=== PATIENT | female | born 2000 | race Caucasian/White ===

== ENCOUNTER 2022-02-19 11:56 | Emergency (ER) | payer OTHER, SELFPAY ==
--- NOTE | 2022-02-19 12:09 | XR_ITS ---
FINAL REPORT CLINICAL HISTORY: fall, bilateral knee pain with abrasions FINDINGS: Three views of the right knee reveal no evidence of fracture or dislocation. The bony alignment is normal. The joint spaces are preserved. There is no evidence of joint effusion. No localized soft tissue abnormality is identified. IMPRESSION: No acute abnormality identified. Reviewed, Interpreted and Dictated by James Underwood III, MD Transcribed by Flavio Rodriguez Authenticated and [facility]
--- NOTE | 2022-02-19 12:09 | XR_ITS ---
FINAL REPORT CLINICAL HISTORY: fall, bilateral knee pain with abrasions FINDINGS: Three views of the left knee reveal no evidence of fracture or dislocation. The bony alignment is normal. The joint spaces are preserved. There is no evidence of joint effusion. No localized soft tissue abnormality is seen. IMPRESSION: No acute abnormality identified. Reviewed, Interpreted and Dictated by James Underwood III, MD Transcribed by Flavio Rodriguez Authenticated and [facility]
--- NOTE | 2022-02-19 12:09 | XR_ITS ---
FINAL REPORT CLINICAL HISTORY: fall, bilateral knee pain with abrasions FINDINGS: LEFT HAND: 3 views of the left hand were obtained. There is no acute fracture or dislocation. Visualized joint spaces are normally aligned. Soft tissues are unremarkable. IMPRESSION: No acute bony abnormality. Reviewed, Interpreted and Dictated by James Underwood III, MD Transcribed by Flavio Rodriguez Authenticated and [facility]
[2022-02-19 12:31] VITALS: BP 130/81; PULSE 87; RESP 18; TEMP 36.9; O2SAT 98; BMI 22.0
--- NOTE | 2022-02-19 12:46 | HMH.EDUTC ---
[facility] [place]: Fall Qualifiers: Encounter type: initial encounter Qualified Code(s): W19.XXXA - Unspecified fall, initial encounter Disposition: Home, Self-Care Condition on Discharge: Good Instructions: DI for Contusion, How To Perform RICE (Rest, Ice, Compress, Elevate), DI for Abrasion, Ibuprofen Additional Instructions: *weight bearing as tolerated *RICE, Rest the extremity, Ice 15-20 minutes 3-4 times daily, Compress- wear the bill wrap as discussed as much as possible to help reduce swelling and pain, Elevate the extremity when at rest *Bill wrap is for support and help control swelling, use it except in the shower. Be sure that is not to tight but not to loose either *Elevate when resting *Ibuprofen 600-800mg every 6-8 hours as needed for pain an inflammation. If need something more can take Tylenol in between doses of Ibuprofen to help Immediately follow up with your family doctor for new or worsening of symptoms, or no noticeable improvement over the next 3-5 days Neosporin to abrasion on left knee and leave area open to air when home You can call back later this evening to get the official reading of your xray Referrals: Alvin Parrish MD [Primary Care Provider] - As needed Time of Disposition: 12:53 Medical Decision Making - Andrew Inquiry Pt receiving controlled substance: No Andrew was queried for this patient: No Vital Signs: 02/19/22 12:31 02/19/22 13:00 Temperature 98.5 F 98.5 F Temperature Source Oral Pulse Rate 87 Pulse Rate [Left Radial] 87 Respiratory Rate 18 18 Blood Pressure 130/81 Blood Pressure [Right Arm] 130/81 Blood Pressure Mean [Right Arm] 97 02 Sat by Pulse Oximetry 98 - Radiology Data #1 Image(s): Hand Image Reviewed: Yes I reviewed the patient's radiology image Preliminary Findings: No Fracture Seen #2 Image(s): Knee (left) Image Reviewed: Yes I reviewed the patient's radiology image Preliminary Findings: No Fracture Seen #3 Image(s): Knee (right) Image Reviewed: Yes I reviewed the patient's radiology image Preliminary Findings: No Fracture [place]en [facility] [place] General Stated complaint: AO fall 02/19 knee pain Time Seen by Provider: 02/19/22 12:46 Description of Symptoms (Recalled from Triage Doc. by RN): patient took a large fall today. pt states that she tripped over her shoe strings. pain is in bilateral knees, and left palm HEENT Symptoms (Recalled from RN notes): No Resp Symptoms (Recalled from RN notes): No Skin Symptoms (Recalled from RN notes): Yes MS Symptoms (Recalled from RN notes): Yes Functional Status (Recalled from RN notes): wnl - History of Present Illness Provider Complaint: Patient states that she was walking when one of her shoestrings got hung up in the metal rings on the other shoe and made her fall States that she went down on both knees and hands State that she is having pain in both her knees and palm of left hand States that she has a bad scratch on her left knee area also Denies hitting her head - Related Data Allergies Allergy/AdvReac Type Severity Reaction Status Date / Time No Known Allergies Allergy Verified 02/19/22 12:33 - Worker's Comp Is this a Worker's Comp case?: No [facility] History - Hepatitis A Screen Attestation statement:: This patient has been screened for Hepatitis A risk factors. I have reviewed the patient's past medical history: Yes ROS Obtained: Yes All systems reviewed & no additional complaints, Yes Systems reviewed as appropriate & no additional complaints - Constitutional Constitutional: Reports system reviewed and no additional complaints, except as docu, Denies body ache, Denies chills, Denies fever(s) - ENT Ears, Nose, Mouth, and Throat: Reports system reviewed and no additional complaints, except as docu - Cardiovascular Cardiovascular: Reports system reviewed and no additional complaints, except as docu - Respiratory Respiratory: Reports system revi
[2022-02-19 13:00] VITALS: BP 130/81; PULSE 87; RESP 18; TEMP 36.9
== END 2022-02-19 13:02 | disposition home or self-care (01) ==
PROVIDERS: Emergency Provider Nurse Practitioner; PCP Family Medicine
DX: S80.212A Abrasion, left knee, initial encounter (principal); M25.562 Pain in left knee; M25.561 Pain in right knee; M79.642 Pain in left hand; W01.10XA Fall on same level from slipping, tripping and stumbling with subsequent striking against unspecified object, initial encounter
CPT/HCPCS: 73130; 73562; 99213; G0463